=== PATIENT | male | born 1955 | race Caucasian/White ===

== ENCOUNTER → 2023-04-05 10:30 | Outpatient (REF) | payer OTHER, SELFPAY ==
[2023-04-05 11:34] LABS: % Basophils 0.2 % (0-2); % Eosinophils 1.4 % (0-6); % Immature Granulocytes 0.3 % (0-0.5); % Lymphocytes 11.9 % (20.5-51.1); % Monocytes 9.7 % (1.7-9.3); % Neutrophils 76.5 % (42.2-75.2); Absolute Eosinophils 0.1 10^3/uL (0-0.7); Absolute Lymphocytes 1.1 10^3/uL (1.2-3.4); Absolute Monocytes 0.9 10^3/uL (0.1-0.6); Absolute Neutrophils 6.9 10^3/uL (1.4-6.5); Hematocrit 38.9 % (39.0-52.0); Hemoglobin 13.8 g/dL (13.0-18.0); Mean Corp Hgb Conc. 35.5 g/dL (33.0-37.0); Mean Corpuscular Hgb 33.3 pg (27.0-31.0); Mean Platelet Volume 9.6 fL (7.4-10.4); Nucleated Red Blood Cells % 0 % (-); Platelet Count 208 10^3/uL (130-400); Red Blood Cell Count 4.14 10^6/uL (4.70-6.10); Red Cell Dist. Width 12.5 % (11.5-14.5); White Blood Cell Count 9.1 10^3/uL (4.8-10.8)
[2023-04-05 11:52] LABS: ALT (SGPT) 16 U/L (0-50); AST (SGOT) 22 U/L (17-59); Albumin 3.4 g/dl (3.5-5.0); Alkaline Phosphatase 61 U/L (38-126); Blood Urea Nitrogen 20 mg/dl (9-20); Carbon Dioxide 28 mmol/L (22-30); Chloride 100 mmol/L (98-107); Glucose 94 mg/dl (70-99); Potassium 4.8 mmol/L (3.5-5.1); Sodium 133 mmol/L (135-145); Total Protein 5.9 g/dl (6.3-8.2); eGFR > 60.00
== END ==
LOC: OLABP 10:30
PROVIDERS: ATTENDING PHYSICIAN Family Medicine
DX: R33.9 Retention of urine, unspecified (principal); G80.9 Cerebral palsy, unspecified; I10 Essential (primary) hypertension; K59.00 Constipation, unspecified; H91.3 Deaf nonspeaking, not elsewhere classified; F41.9 Anxiety disorder, unspecified; R26.2 Difficulty in walking, not elsewhere classified; Z96.20 Presence of otological and audiological implant, unspecified; M62.49 Contracture of muscle, multiple sites; M62.59 Muscle wasting and atrophy, not elsewhere classified, multiple sites; R31.9 Hematuria, unspecified; N20.0 Calculus of kidney; N40.1 Benign prostatic hyperplasia with lower urinary tract symptoms
CPT/HCPCS: 36415; 80053; 85025

== ENCOUNTER → 2023-04-23 17:07 | Outpatient (REF) | payer OTHER, MEDICARE, SELFPAY ==
[2023-04-23 17:50] LABS: Urine Albumin Negative (Neg - Trace); Urine Bilirubin Negative (Negative); Urine Character Clear (Clear); Urine Color Yellow; Urine Glucose Negative (Negative); Urine Ketone Negative (Negative); Urine Leukocyte Trace (Negative); Urine Nitrite Negative (Negative); Urine Occult Blood Negative (Negative); Urine Specific Gravity 1.015 (<1.030); Urine Urobilinogen Negative (Neg - 1+)
[2023-04-23 17:59] LABS: Urine Hyaline Cast 0-2 /LPF (0-2); Urine Red Blood Cell None Seen /HPF (0-2); Urine Squamous Cell 0-2 /LPF (Few); Urine White Cell 21-25 /HPF (0-5)
== END ==
LOC: OLABP 17:07
PROVIDERS: ATTENDING PHYSICIAN Family Medicine
DX: R33.9 Retention of urine, unspecified (principal)
CPT/HCPCS: 81003; 81015; 87086

== ENCOUNTER → 2023-05-24 12:00 | Outpatient (REF) | payer OTHER, MEDICARE, SELFPAY ==
[2023-05-24 19:29] LABS: Urine Albumin Negative (Neg - Trace); Urine Bilirubin Negative (Negative); Urine Character Clear (Clear); Urine Color Yellow; Urine Glucose Negative (Negative); Urine Ketone Negative (Negative); Urine Leukocyte Trace (Negative); Urine Nitrite Negative (Negative); Urine Occult Blood Negative (Negative); Urine Specific Gravity 1.015 (<1.030); Urine Urobilinogen Negative (Neg - 1+)
[2023-05-24 19:38] LABS: Urine Red Blood Cell 0-2 /HPF (0-2); Urine Squamous Cell 0-2 /LPF (Few); Urine White Cell 26-30 /HPF (0-5)
[2023-05-24 19:39] LABS: Urine Bacteria Many (Negative)
== END ==
LOC: OLABP 12:00
PROVIDERS: ATTENDING PHYSICIAN Family Medicine
DX: R33.9 Retention of urine, unspecified (principal); G35 Multiple sclerosis; I10 Essential (primary) hypertension; K59.00 Constipation, unspecified; H91.3 Deaf nonspeaking, not elsewhere classified; R31.9 Hematuria, unspecified; F41.9 Anxiety disorder, unspecified; N20.0 Calculus of kidney; N40.1 Benign prostatic hyperplasia with lower urinary tract symptoms
CPT/HCPCS: 81003; 81015; 87077; 87086; 87186

== ENCOUNTER → 2023-06-01 11:19 | Outpatient (REF) | payer OTHER, MEDICARE, SELFPAY ==
[2023-06-01 12:08] LABS: Hematocrit 40.7 % (39.0-52.0); Mean Corp Hgb Conc. 34.4 g/dL (33.0-37.0); Mean Corpuscular Hgb 32.4 pg (27.0-31.0); Mean Corpuscular Volume 94.2 fL (80.0-94.0); Mean Platelet Volume 10.2 fL (7.4-10.4); Platelet Count 145 10^3/uL (130-400); Red Blood Cell Count 4.32 10^6/uL (4.70-6.10); Red Cell Dist. Width 11.8 % (11.5-14.5); White Blood Cell Count 4.1 10^3/uL (4.8-10.8)
[2023-06-01 12:27] LABS: Nucleated Red Blood Cells % 0 % (-)
[2023-06-01 12:47] LABS: ALT (SGPT) 11 U/L (0-50); AST (SGOT) 21 U/L (17-59); Albumin 3.6 g/dl (3.5-5.0); Alkaline Phosphatase 56 U/L (38-126); Blood Urea Nitrogen 17 mg/dl (9-20); Calcium 8.6 mg/dl (8.4-10.2); Carbon Dioxide 28 mmol/L (22-30); Chloride 98 mmol/L (98-107); Glucose 85 mg/dl (70-99); Potassium 4.6 mmol/L (3.5-5.1); Sodium 130 mmol/L (135-145); Total Bilirubin 0.4 mg/dl (0.2-1.3); Total Protein 6.3 g/dl (6.3-8.2); eGFR > 60.00
[2023-06-01 13:47] LABS: Absolute Neutrophils -Man Diff 2.3 10^3/uL (1.4-6.5); Band Neutrophils 6 % (0-3); Lymphocytes 25 % (20-51); Monocytes 18 % (2-9); Normal RBC Morphology Yes; Platelets Checked Yes; Segmented Neutrophils 51 % (42-75)
[2023-06-01 13:48] LABS: Total Cells Counted 100
== END ==
LOC: OLABP 11:19
PROVIDERS: ATTENDING PHYSICIAN Family Medicine
DX: R33.9 Retention of urine, unspecified (principal); G35 Multiple sclerosis; I10 Essential (primary) hypertension; K59.00 Constipation, unspecified; R31.9 Hematuria, unspecified; N20.0 Calculus of kidney; N40.1 Benign prostatic hyperplasia with lower urinary tract symptoms; F41.9 Anxiety disorder, unspecified
CPT/HCPCS: 36415; 80053; 85025

== ENCOUNTER → 2023-06-20 11:46 | Outpatient (REF) | payer OTHER, SELFPAY ==
[2023-06-20 12:35] LABS: % Basophils 0.4 % (0-2); % Eosinophils 1.8 % (0-6); % Immature Granulocytes 0.2 % (0-0.5); % Lymphocytes 22.2 % (20.5-51.1); % Monocytes 12.2 % (1.7-9.3); % Neutrophils 63.2 % (42.2-75.2); Absolute Eosinophils 0.1 10^3/uL (0-0.7); Absolute Lymphocytes 1.1 10^3/uL (1.2-3.4); Absolute Monocytes 0.6 10^3/uL (0.1-0.6); Absolute Neutrophils 3.1 10^3/uL (1.4-6.5); Hematocrit 39.8 % (39.0-52.0); Hemoglobin 13.3 g/dL (13.0-18.0); Mean Corp Hgb Conc. 33.4 g/dL (33.0-37.0); Mean Corpuscular Volume 95.9 fL (80.0-94.0); Mean Platelet Volume 9.9 fL (7.4-10.4); Nucleated Red Blood Cells % 0 % (-); Platelet Count 167 10^3/uL (130-400); Red Blood Cell Count 4.15 10^6/uL (4.70-6.10); Red Cell Dist. Width 11.7 % (11.5-14.5); White Blood Cell Count 4.9 10^3/uL (4.8-10.8)
[2023-06-20 13:43] LABS: ALT (SGPT) 17 U/L (0-50); AST (SGOT) 21 U/L (17-59); Albumin 3.5 g/dl (3.5-5.0); Alkaline Phosphatase 44 U/L (38-126); Blood Urea Nitrogen 17 mg/dl (9-20); Carbon Dioxide 30 mmol/L (22-30); Chloride 103 mmol/L (98-107); Glucose 91 mg/dl (70-99); Potassium 4.5 mmol/L (3.5-5.1); Sodium 132 mmol/L (135-145); Total Bilirubin 0.6 mg/dl (0.2-1.3); Total Protein 6.1 g/dl (6.3-8.2); eGFR > 60.00
== END ==
LOC: OLABP 11:46
PROVIDERS: ATTENDING PHYSICIAN Family Medicine
DX: R33.9 Retention of urine, unspecified (principal); G35 Multiple sclerosis; I10 Essential (primary) hypertension; K59.00 Constipation, unspecified; H91.3 Deaf nonspeaking, not elsewhere classified; F41.9 Anxiety disorder, unspecified; R31.9 Hematuria, unspecified; N20.0 Calculus of kidney; N40.1 Benign prostatic hyperplasia with lower urinary tract symptoms
CPT/HCPCS: 36415; 80053; 85025

== ENCOUNTER → 2023-07-21 11:12 | Outpatient (REF) | payer OTHER, SELFPAY ==
[2023-07-21 11:44] LABS: % Basophils 0.4 % (0-2); % Eosinophils 2.5 % (0-6); % Immature Granulocytes 0.2 % (0-0.5); % Lymphocytes 23.5 % (20.5-51.1); % Monocytes 9.6 % (1.7-9.3); % Neutrophils 63.8 % (42.2-75.2); Absolute Eosinophils 0.1 10^3/uL (0-0.7); Absolute Lymphocytes 1.1 10^3/uL (1.2-3.4); Absolute Monocytes 0.4 10^3/uL (0.1-0.6); Absolute Neutrophils 2.9 10^3/uL (1.4-6.5); Hematocrit 41.4 % (39.0-52.0); Hemoglobin 14.1 g/dL (13.0-18.0); Mean Corp Hgb Conc. 34.1 g/dL (33.0-37.0); Mean Corpuscular Volume 94.1 fL (80.0-94.0); Mean Platelet Volume 10.3 fL (7.4-10.4); Nucleated Red Blood Cells % 0 % (-); Platelet Count 152 10^3/uL (130-400); Red Cell Dist. Width 12.2 % (11.5-14.5); White Blood Cell Count 4.5 10^3/uL (4.8-10.8)
[2023-07-21 12:40] LABS: ALT (SGPT) 16 U/L (0-50); AST (SGOT) 20 U/L (17-59); Albumin 3.6 g/dl (3.5-5.0); Alkaline Phosphatase 45 U/L (38-126); Blood Urea Nitrogen 21 mg/dl (9-20); Calcium 9.4 mg/dl (8.4-10.2); Carbon Dioxide 26 mmol/L (22-30); Chloride 102 mmol/L (98-107); Glucose 120 mg/dl (70-99); Potassium 5.1 mmol/L (3.5-5.1); Sodium 135 mmol/L (135-145); Total Bilirubin 0.6 mg/dl (0.2-1.3); Total Protein 6.4 g/dl (6.3-8.2); eGFR > 60.00
== END ==
LOC: OLABP 11:12
PROVIDERS: ATTENDING PHYSICIAN Family Medicine
DX: R33.9 Retention of urine, unspecified (principal); G35 Multiple sclerosis; I10 Essential (primary) hypertension; K59.00 Constipation, unspecified; H91.3 Deaf nonspeaking, not elsewhere classified; F41.9 Anxiety disorder, unspecified; R31.9 Hematuria, unspecified; N20.0 Calculus of kidney; N40.1 Benign prostatic hyperplasia with lower urinary tract symptoms
CPT/HCPCS: 36415; 80053; 85025

== ENCOUNTER → 2023-08-21 11:15 | Outpatient (REF) | payer MEDICARE, SELFPAY ==
[2023-08-21 12:20] LABS: ALT (SGPT) 15 U/L (0-50); AST (SGOT) 20 U/L (17-59); Alkaline Phosphatase 54 U/L (38-126); Blood Urea Nitrogen 19 mg/dl (9-20); Calcium 9.5 mg/dl (8.4-10.2); Carbon Dioxide 26 mmol/L (22-30); Chloride 101 mmol/L (98-107); Glucose 89 mg/dl (70-99); Sodium 136 mmol/L (135-145); Total Bilirubin 0.9 mg/dl (0.2-1.3); Total Protein 6.7 g/dl (6.3-8.2); eGFR > 60.00
[2023-08-21 12:21] LABS: % Basophils 0.4 % (0-2); % Eosinophils 1.6 % (0-6); % Immature Granulocytes 0.2 % (0-0.5); % Lymphocytes 27.2 % (20.5-51.1); % Monocytes 11.7 % (1.7-9.3); % Neutrophils 58.9 % (42.2-75.2); Absolute Eosinophils 0.1 10^3/uL (0-0.7); Absolute Lymphocytes 1.4 10^3/uL (1.2-3.4); Absolute Monocytes 0.6 10^3/uL (0.1-0.6); Absolute Neutrophils 2.9 10^3/uL (1.4-6.5); Hematocrit 38.6 % (39.0-52.0); Hemoglobin 13.5 g/dL (13.0-18.0); Mean Corpuscular Hgb 32.2 pg (27.0-31.0); Mean Corpuscular Volume 92.1 fL (80.0-94.0); Mean Platelet Volume 9.7 fL (7.4-10.4); Nucleated Red Blood Cells % 0 % (-); Platelet Count 196 10^3/uL (130-400); Red Blood Cell Count 4.19 10^6/uL (4.70-6.10); Red Cell Dist. Width 12.7 % (11.5-14.5)
== END ==
LOC: OLABP 11:15
PROVIDERS: ATTENDING PHYSICIAN Family Medicine
DX: R33.9 Retention of urine, unspecified (principal); G35 Multiple sclerosis; I10 Essential (primary) hypertension; K59.00 Constipation, unspecified; H91.3 Deaf nonspeaking, not elsewhere classified; F41.9 Anxiety disorder, unspecified; R31.9 Hematuria, unspecified; N20.0 Calculus of kidney; N40.1 Benign prostatic hyperplasia with lower urinary tract symptoms
CPT/HCPCS: 36415; 80053; 85025

== ENCOUNTER → 2023-08-25 10:52 | Outpatient (REF) | payer MEDICARE, SELFPAY ==
[2023-08-25 11:13] LABS: % Basophils 0.4 % (0-2); % Eosinophils 1.9 % (0-6); % Immature Granulocytes 0.4 % (0-0.5); % Lymphocytes 26.3 % (20.5-51.1); Absolute Eosinophils 0.1 10^3/uL (0-0.7); Absolute Lymphocytes 1.4 10^3/uL (1.2-3.4); Absolute Monocytes 0.6 10^3/uL (0.1-0.6); Absolute Neutrophils 3.2 10^3/uL (1.4-6.5); Hematocrit 38.5 % (39.0-52.0); Hemoglobin 13.5 g/dL (13.0-18.0); Mean Corp Hgb Conc. 35.1 g/dL (33.0-37.0); Mean Corpuscular Hgb 32.4 pg (27.0-31.0); Mean Corpuscular Volume 92.3 fL (80.0-94.0); Mean Platelet Volume 9.6 fL (7.4-10.4); Nucleated Red Blood Cells % 0 % (-); Platelet Count 181 10^3/uL (130-400); Red Blood Cell Count 4.17 10^6/uL (4.70-6.10); White Blood Cell Count 5.3 10^3/uL (4.8-10.8)
[2023-08-25 11:26] LABS: ALT (SGPT) 14 U/L (0-50); AST (SGOT) 17 U/L (17-59); Albumin 3.9 g/dl (3.5-5.0); Alkaline Phosphatase 47 U/L (38-126); Blood Urea Nitrogen 19 mg/dl (9-20); Calcium 9.2 mg/dl (8.4-10.2); Carbon Dioxide 29 mmol/L (22-30); Chloride 102 mmol/L (98-107); Glucose 84 mg/dl (70-99); Potassium 4.4 mmol/L (3.5-5.1); Sodium 135 mmol/L (135-145); Total Bilirubin 0.8 mg/dl (0.2-1.3); Total Protein 6.3 g/dl (6.3-8.2); Uric Acid 3.8 mg/dl (3.5-8.5); eGFR > 60.00
== END ==
LOC: OLABP 10:52
PROVIDERS: ATTENDING PHYSICIAN Family Medicine
DX: R33.9 Retention of urine, unspecified (principal); G35 Multiple sclerosis; I10 Essential (primary) hypertension; K59.00 Constipation, unspecified; H91.3 Deaf nonspeaking, not elsewhere classified; F41.9 Anxiety disorder, unspecified; N20.0 Calculus of kidney; N40.1 Benign prostatic hyperplasia with lower urinary tract symptoms; R31.9 Hematuria, unspecified
CPT/HCPCS: 36415; 80053; 84550; 85025

== ENCOUNTER → 2023-09-25 11:41 | Outpatient (REF) | payer OTHER, SELFPAY ==
[2023-09-25 13:12] LABS: % Basophils 0.4 % (0-2); % Eosinophils 2.2 % (0-6); % Immature Granulocytes 0.2 % (0-0.5); % Lymphocytes 28.9 % (20.5-51.1); % Monocytes 10.1 % (1.7-9.3); % Neutrophils 58.2 % (42.2-75.2); Absolute Eosinophils 0.1 10^3/uL (0-0.7); Absolute Lymphocytes 1.6 10^3/uL (1.2-3.4); Absolute Monocytes 0.6 10^3/uL (0.1-0.6); Absolute Neutrophils 3.2 10^3/uL (1.4-6.5); Hematocrit 38.6 % (39.0-52.0); Hemoglobin 13.2 g/dL (13.0-18.0); Mean Corp Hgb Conc. 34.2 g/dL (33.0-37.0); Mean Corpuscular Hgb 32.4 pg (27.0-31.0); Mean Corpuscular Volume 94.6 fL (80.0-94.0); Nucleated Red Blood Cells % 0 % (-); Platelet Count 173 10^3/uL (130-400); Red Blood Cell Count 4.08 10^6/uL (4.70-6.10); Red Cell Dist. Width 13.2 % (11.5-14.5); White Blood Cell Count 5.5 10^3/uL (4.8-10.8)
[2023-09-25 13:18] LABS: ALT (SGPT) 12 U/L (0-50); AST (SGOT) 16 U/L (17-59); Albumin 3.8 g/dl (3.5-5.0); Alkaline Phosphatase 44 U/L (38-126); Blood Urea Nitrogen 27 mg/dl (9-20); Calcium 9.3 mg/dl (8.4-10.2); Carbon Dioxide 29 mmol/L (22-30); Chloride 105 mmol/L (98-107); Glucose 92 mg/dl (70-99); Potassium 4.6 mmol/L (3.5-5.1); Sodium 138 mmol/L (135-145); Total Bilirubin 0.7 mg/dl (0.2-1.3); Total Protein 6.3 g/dl (6.3-8.2); eGFR > 60.00
== END ==
LOC: OLABP 11:41
PROVIDERS: ATTENDING PHYSICIAN Family Medicine
DX: R33.9 Retention of urine, unspecified (principal); G35 Multiple sclerosis; I10 Essential (primary) hypertension; K59.00 Constipation, unspecified; H91.3 Deaf nonspeaking, not elsewhere classified; F41.9 Anxiety disorder, unspecified; R31.9 Hematuria, unspecified; N20.0 Calculus of kidney; N40.1 Benign prostatic hyperplasia with lower urinary tract symptoms
CPT/HCPCS: 36415; 80053; 85025

== ENCOUNTER 2024-03-05 19:47 | Emergency (ER) | payer OTHER, SELFPAY ==
[2024-03-05 19:52] VITALS: BP 131/79
--- NOTE | 2024-03-05 20:18 | ED.GENMED ---
History of Present Illness
General
Chief Complaint: Swelling
Source: patient
Exam Limitations: none
Time Seen by Provider: 03/05/24 20:00
History of Present Illness
History of Present Illness:
See MDM
Past History
Past History
ED Past Medical History: Other (Cerebral palsy) and Other (Prostatic hypertrophy)
Social History
Tobacco: Non-smoker
Personal: Single
Living: retirement
Employment: Not employed
Phy Exam
Physical Exam
Physical Exam:
See MDM
Scores
Heart Failure Risk
Heart Failure Risk Score: Not Applicable
Course
Orders/Labs/Results
Orders:
Orders
03/05/24 20:11
US Periph Venous LOWER Ext LT Urgent
Comment:
Reason For Exam: left leg swelling
03/05/24 21:46
Apixaban [Eliquis] 10 mg PO ONCE ONE
Vital Signs
Initial and Last Documented VS:
Initial Vital Signs
Temp Pulse Resp BP Pulse Ox
98.7 F 78 16 131/79 95
03/05/24 19:52 03/05/24 19:52 03/05/24 19:52 03/05/24 19:52 03/05/24 19:52
Last Documented Vital Signs
Temp Pulse Resp BP Pulse Ox
98.7 F 78 16 131/79 95
03/05/24 19:52 03/05/24 19:52 03/05/24 19:52 03/05/24 19:52 03/05/24 19:52
MDM/Problems Addressed
Differential Diagnosis Includes:
HPI and MDM Narrative:
68-year-old male presenting for evaluation of left calf swelling. He noticed it about a week ago. Patient has cerebral palsy and is nonambulatory. He denies any pain. Denies chest pain or shortness of breath.
He does have mild erythema to the left calf. Distal extremity neurovascularly intact. Will obtain ultrasound rule out DVT
Patient has overgrown toenails. I discussed follow-up with the podiatry. Patient states podiatry was post to follow-up at his facility but never showed up. Given that his toenails are extremely overgrown unknown at his facility is willing to cut
them, I did trim them with scissors. Patient tolerated it well
Physical exam
General: Well appearing and non-toxic
HEENT: protecting airway
Neck: appears supple
CV: No evidence of cyanosis
Resp: No accessory muscle use
Abd: Non-distended
Extremities: Contractures to distal ankles. Mild left calf erythema and edema. No tenderness. Legs are neurovascularly intact
Neuro: alert
Psych: Normal affect
Skin: Intact
Problems Addressed including Acute and Chronic Conditions affecting care:
1. Left calf swelling and erythema
Acuity: acute
Prognosis: stable
Details: Will obtain ultrasound rule DVT. If negative, will consider antibiotics
2. Overgrown toenails
Acuity: acute on chronic
Prognosis: stable
Details: The toenails were trimmed using scissors. Patient tolerated procedure well.
Updates
Patient found to have DVT. Will start Eliquis
Differential Diagnosis (but not limited to): DVT, cellulitis
Testing considered: Blood work
Drug therapy (if applicable): OTC meds, please see d/c instruction regarding Rx drugs
Amount and/or Complexity of Data Reviewed
Clinical info obtained from: Patient
External data reviewed: Prior records indicate normal renal function
Labs I independently reviewed (but not limited to): N/A
Radiology: Ultrasound report reviewed
Pulse Ox: not hypoxic
EKG independently reviewed: N/A
Wholesale Representative: N/A
Critical Care: N/A
Risk of Complication:
Social Determinants of health: Good social support
Discussed with other providers: N/A
Escalation of Care includes Admit/Obs: After being observed in the Emergency Department, pt stable for discharge.
Occasional wrong word or 'sound a like' substitutions may have occurred due to the inherent limitations of voice recognition software. Read the chart carefully and recognize, using context, where substitutions have occurred.
*Critical Care Note
Total Time (30-74mins, 75-104mins- exclusive of procedures): Not Applicable
ED Attending Note
-
Portions of this chart may have been created with voice recognition software.� Occasional wrong word or��sound alike� substitutions may have occurred due to the inherent limitations of voice recognition software.
Discharge Plan
Departure
Patient Disposition: Home (Routine Discharge)
Date of Disposition: 03/05/24
Time of Disposition: 21:49
Patient with high blood pressure during this ER visit?: No
Discharge Problem:
DVT of lower limb, acute
Instructions: Deep vein thrombosis (blood clot in the leg)
Prescriptions:
New
Eliquis 5 mg tablet
See Rx Instructions .ROUTE .COMPLEX Qty: 74 0RF
Rx Instructions:
10mg BID for first 7 days.
5mg BID moving forward after first 7 days.
No Action
phenazopyridine 200 MG tablet
200 mg PO TID
lorazepam 0.5 MG tablet
0.5 mg PO .0630,1430,2230
tamsulosin 0.4 MG capsule
0.8 mg PO DAILY
paroxetine HCl 20 MG tablet
20 mg PO DAILY
finasteride 5 MG tablet
5 mg PO DAILY
cefdinir [Omnicef] 300 MG capsule
300 mg PO BID Qty: 14 0RF
Activity Restrictions/Additional Instructions:
You were found to have a large blood clot in the left leg. I am placing you on a blood thinner called Eliquis. Please use the provided coupon to get the first 30 days free.
Your doctor will continue to prescribe this moving forward.
Please return for any worsening symptoms.
You may return at any time if you have further concerns.
Please follow up with your doctor at the first available appointment, preferably this week.
Thank you for choosing [facility].
Interventions
Interventions:
*Risk Screen - Suicide Last Done: 03/05/24 19:52
*General Assessment Last Done: 03/05/24 19:52
ED- Fall Risk Assessment Last Done: 03/05/24 20:46
ED- Pulmonary Assessment Last Done: 03/05/24 20:46
ED-Skin Assessment Last Done: 03/05/24 20:46
Discharge Date and Time
Print Language: MOROCCAN
[2024-03-05] MEDS: ELIQUIS 10 MG PO (21:48)
[2024-03-05 21:56] VITALS: BP 139/76
--- NOTE | 2024-03-05 21:56 | EDRN ---
Patient rolled and changed brief and pulled up in bed
--- NOTE | 2024-03-05 22:33 | EDRN ---
Report to nurse at facility
== END 2024-03-05 22:50 | disposition home or self-care (01) ==
LOC: EMR 19:47
PROVIDERS: EMERGENCY PHYSICIAN Student in an Organized Health Care Education/Training Program; FAMILY PHYSICIAN Nurse Practitioner Family
DX: I82.412 Acute embolism and thrombosis of left femoral vein (principal); I82.432 Acute embolism and thrombosis of left popliteal vein; I82.452 Acute embolism and thrombosis of left peroneal vein; I82.442 Acute embolism and thrombosis of left tibial vein
CPT/HCPCS: 99284; 93971

== ENCOUNTER 2024-05-05 15:36 | Emergency (ER) | payer OTHER, SELFPAY ==
[2024-05-05] VITALS (9 sets, daily range): BP systolic 123–145; BP diastolic 72–86
[2024-05-05 16:04] LABS: % Basophils 0.3 % (0-2); % Immature Granulocytes 0.4 % (0-0.5); % Lymphocytes 23.4 % (20.5-51.1); % Monocytes 10.3 % (1.7-9.3); % Neutrophils 63.6 % (42.2-75.2); Absolute Eosinophils 0.2 10^3/uL (0-0.7); Absolute Lymphocytes 1.7 10^3/uL (1.2-3.4); Absolute Monocytes 0.8 10^3/uL (0.1-0.6); Absolute Neutrophils 4.7 10^3/uL (1.4-6.5); Hematocrit 44.8 % (39.0-52.0); Hemoglobin 15.5 g/dL (13.0-18.0); Mean Corp Hgb Conc. 34.6 g/dL (33.0-37.0); Mean Corpuscular Hgb 32.1 pg (27.0-31.0); Mean Corpuscular Volume 92.8 fL (80.0-94.0); Mean Platelet Volume 8.9 fL (7.4-10.4); Nucleated Red Blood Cells % 0 % (-); Platelet Count 164 10^3/uL (130-400); Red Blood Cell Count 4.83 10^6/uL (4.70-6.10); Red Cell Dist. Width 12.2 % (11.5-14.5); White Blood Cell Count 7.4 10^3/uL (4.8-10.8)
[2024-05-05 16:19] LABS: ALT (SGPT) 23 U/L (0-50); AST (SGOT) 24 U/L (17-59); Albumin 4.4 g/dl (3.5-5.0); Alkaline Phosphatase 64 U/L (38-126); Blood Urea Nitrogen 26 mg/dl (9-20); Calcium 9.8 mg/dl (8.4-10.2); Carbon Dioxide 26 mmol/L (22-30); Chloride 104 mmol/L (98-107); Glucose 104 mg/dl (70-99); Potassium 4.2 mmol/L (3.5-5.1); Sodium 136 mmol/L (135-145); Total Bilirubin 0.5 mg/dl (0.2-1.3); Total Protein 7.2 g/dl (6.3-8.2); eGFR > 60.00
--- NOTE | 2024-05-05 16:22 | ED.GENMED ---
History of Present Illness
General
Chief Complaint: Chest Pain
Source: patient
Exam Limitations: none
Time Seen by Provider: 05/05/24 16:22
History of Present Illness
History of Present Illness:
68-year-old male complaining of episodes of heart racing the last 3 days. Actually denies chest pain or chest pressure to me. No shortness of breath. No current symptoms. Last episode was hours ago. No syncope. Patient diagnosed with DVT a few
months ago. Faithful with Eliquis.
Past History
Past History
ED Past Medical History: Other (Cerebral palsy) and Other (Prostatic hypertrophy)
Social History
Tobacco: Non-smoker
Personal: Single
Living: [facility]
Employment: Not employed
Review of Systems
Review of Systems
All Other Systems: Not applicable
Constitutional: Denies fever
Respiratory: Denies trouble breathing
Cardiac: Denies chest pain, diaphoresis or syncope
Phy Exam
Physical Exam
Physical Exam:
GENERAL: Alert and oriented in no apparent distress. Cerebral palsy. Hard of hearing.
EYE: Orbits normal.
NECK: Supple, no significant adenopathy.
ENT: Pharynx without erythema
CARDIAC: Regular rate and rhythm without any obvious murmurs.
LUNGS: Clear breath sounds,normal
ABDOMEN: Soft, without focal tenderness or distention
NEUROLOGICAL: Alert and oriented , grossly non-focal. Cerebral palsy
SKIN: Warm and dry, no rash or lesion, no discoloration, skin intact.
MUSCULOSKELETAL: Mild swelling to the left lower leg. No cord or erythema. Good distal pulses and color
PSYCH: Normal and appropriate interaction.
Scores
Heart Score for Chest Pain Patients
STEMI patient?: Not applicable
Course
Orders/Labs/Results
Orders:
Orders
05/05/24 15:40
Electrocardiogram (*1) Urgent
Reason for Study: Palpitations
EKG- Treatment ONCE
05/05/24 15:54
Complete Blood Count/With Diff Urgent
Comprehensive Metabolic Panel Urgent
Troponin I Urgent
05/05/24 18:41
Electrocardiogram (*1) Stat
Reason for Study: Other
Other Reason for Exam: chest pain
EKG- Treatment ONCE
05/05/24 18:43
Troponin I Urgent
05/05/24 20:33
Lorazepam [Ativan] 0.5 mg PO NOW STA
Abnormal Lab Results
05/05/24
15:54
MCH 32.1 H pg
(27.0-31.0)
Absolute Monos (auto) 0.8 H 10^3/uL
(0.1-0.6)
Monocytes % 10.3 H %
(1.7-9.3)
BUN 26 H mg/dl
(9-20)
Glucose 104 H mg/dl
(70-99)
05/05/24 15:54
05/05/24 15:54
Vital Signs
Initial and Last Documented VS:
Initial Vital Signs
BP
145/86
05/05/24 15:43
Last Documented Vital Signs
Temp Pulse Resp BP Pulse Ox
97.7 F 76 13 133/75 94
05/05/24 15:45 05/05/24 18:45 05/05/24 18:45 05/05/24 18:00 05/05/24 18:45
MDM/Problems Addressed
Differential Diagnosis Includes:
Patient describing episodes of heart racing. No syncope no chest pain no shortness of breath. Currently asymptomatic. Not describing ischemic cardiac issues. We will do 2 troponins and EKGs for completeness however. Highly doubt that he is
throwing pulmonary emboli from his DVT. I would not expect the symptoms to come and go and go away this quickly especially without chest pain or shortness of breath. Will monitor him 4 hours looking for any arrhythmia.
*Pulse Oximetry
Patient hypoxic: no
*EKG
Interpreted by ED Provider?: Yes
Interpretation: normal
Comparison EKG: no changes
Heart Rate: 89
Rate: normal
Rhythm: sinus
[place]: normal axis
Interval: normal interval
QRS Pattern: normal QRS
Ischemia: no ischemia
*Software Applications Architect Interpretation
Rate: normal
Interpretation: normal
Heart Rate: 80
Rhythm: sinus
*Critical Care Note
Total Time (30-74mins, 75-104mins- exclusive of procedures): Not Applicable
Data Reviewed
Review of Other/Old Records Reveals: Labs, Records and Testing
Update Note
Update Note:
Repeat EKG normal sinus rhythm no acute changes. Patient has remained in a normal rhythm. No acute findings. Stable for discharge to follow-up.
ED Attending Note
-
Portions of this chart may have been created with voice recognition software.� Occasional wrong word or��sound alike� substitutions may have occurred due to the inherent limitations of voice recognition software.
Discharge Plan
Departure
Patient Disposition: Home (Routine Discharge)
Date of Disposition: 05/05/24
Time of Disposition: 20:33
Patient with high blood pressure during this ER visit?: Yes
Discharge Problem:
Episodic palpitations
Instructions: BLOOD PRESSURE, Heart Palpitations
Prescriptions:
No Action
phenazopyridine 200 MG tablet
200 mg PO TID
lorazepam 0.5 MG tablet
0.5 mg PO .0630,1430,2230
tamsulosin 0.4 MG capsule
0.8 mg PO DAILY
paroxetine HCl 20 MG tablet
20 mg PO DAILY
finasteride 5 MG tablet
5 mg PO DAILY
cefdinir [Omnicef] 300 MG capsule
300 mg PO BID Qty: 14 0RF
Eliquis 5 mg tablet
See Rx Instructions .ROUTE .COMPLEX Qty: 74 0RF
Rx Instructions:
10mg BID for first 7 days.
5mg BID moving forward after first 7 days.
Referrals:
Lilian New CRNP [Family Provider] - Follow up in 2-3 days
Activity Restrictions/Additional Instructions:
To consider Holter monitor for episodic palpitations
We did give him his dose of lorazepam before he returned. He can have his other nighttime medicines
Interventions
Interventions:
*Risk Screen - Suicide Last Done: 05/05/24 15:46
*General Assessment Last Done: 05/05/24 15:46
*Neglect/Abuse Screening Last Done: 05/05/24 15:46
*ED- Fall Risk Assessment Last Done: 05/05/24 15:46
*ED COVID-19 Vaccine History Last Done: 05/05/24 15:46
ED- Cardiac Assessment Last Done: 05/05/24 15:47
Discharge Date and Time
Print Language: SYRIAN
[2024-05-05 16:31] LABS: Troponin I < 0.012 ng/ml
[2024-05-05 19:17] LABS: Troponin I 0.013 ng/ml
[2024-05-05] MEDS: ATIVAN 0.5 MG PO (20:40)
== END 2024-05-05 23:02 | disposition home or self-care (01) ==
LOC: EMR 15:36
PROVIDERS: EMERGENCY PHYSICIAN Emergency Medicine; FAMILY PHYSICIAN Nurse Practitioner Family
DX: R00.2 Palpitations (principal); G80.8 Other cerebral palsy; N40.0 Benign prostatic hyperplasia without lower urinary tract symptoms; Z86.718 Personal history of other venous thrombosis and embolism
CPT/HCPCS: 99283; 80053; 84484; 85025; 93005

== ENCOUNTER 2024-10-14 11:36 | Emergency (ER) | payer OTHER, SELFPAY ==
[2024-10-14 11:39] VITALS: BP 161/61; BMI 27.7
[2024-10-14 12:00] VITALS: BP 117/74
--- NOTE | 2024-10-14 12:31 | ED.SKININJ ---
HPI-Injury
General
Chief Complaint: Ear Problem
Source: patient
Exam Limitations: none
Time Seen by Provider: 10/14/24 12:18
History of Present Illness-Injury
Initial Injury comments:
69-year-old male [facility] with complaints of left ear discomfort and a sensation of clogged ear. He has a history of cerebral palsy. He states his ear is ringing. He has trouble hearing out of the ear. He states that ears have a
couple years. No fever. No other complaints at this time
Past History
Past History
ED Past Medical History: Other (Cerebral palsy) and Other (Prostatic hypertrophy)
Social History
Tobacco: Non-smoker
Personal: Single
Living: long-term
Employment: Not employed
Phy Exam
Physical Exam
Physical Exam:
General: Well-appearing male no acute distress
HEENT: Left external auditory canal impacted with cerumen. Right canal is clear. Face is symmetric no obvious asymmetry no droop
Skin is warm no rash
Course
Vital Signs
Initial and Last Documented VS:
Initial Vital Signs
Temp Pulse Resp BP Pulse Ox
98.4 F 81 18 161/61 94
10/14/24 11:39 10/14/24 11:39 10/14/24 11:39 10/14/24 11:39 10/14/24 11:39
Last Documented Vital Signs
Temp Pulse Resp BP Pulse Ox
98.4 F 81 18 117/74 94
10/14/24 11:39 10/14/24 11:39 10/14/24 11:39 10/14/24 12:00 10/14/24 11:46
MDM/Problems Addressed
Differential Diagnosis Includes:
Left external auditory canal cerumen impaction. This was irrigated with warm water and large amounts of cerumen were irrigated from the ear. The ear was reinspected. The ear is clear the tympanic membrane is normal. He states he feels better.
Stable for discharge back to facility
*Pulse Oximetry
SaO2: 94
Oxygen Mode of Delivery: Room air
Patient hypoxic: no
*Critical Care Note
Total Time (30-74mins, 75-104mins- exclusive of procedures): Not Applicable
ED Attending Note
-
Portions of this chart may have been created with voice recognition software.� Occasional wrong word or��sound alike� substitutions may have occurred due to the inherent limitations of voice recognition software.
Discharge Plan
Departure
Patient Disposition: Home (Routine Discharge)
Date of Disposition: 10/14/24
Time of Disposition: 12:33
Patient with high blood pressure during this ER visit?: No
Discharge Problem:
Cerumen impaction
Instructions: Ear Wax Impaction (DC)
Prescriptions:
No Action
phenazopyridine 200 MG tablet
200 mg PO TID
lorazepam 0.5 MG tablet
0.5 mg PO .0630,1430,2230
tamsulosin 0.4 MG capsule
0.8 mg PO DAILY
paroxetine HCl 20 MG tablet
20 mg PO DAILY
finasteride 5 MG tablet
5 mg PO DAILY
cefdinir [Omnicef] 300 MG capsule
300 mg PO BID Qty: 14 0RF
Eliquis 5 mg tablet
See Rx Instructions .ROUTE .COMPLEX Qty: 74 0RF
Rx Instructions:
10mg BID for first 7 days.
5mg BID moving forward after first 7 days.
Referrals:
Joseph Hendricks MD [Family Provider, Family Practice]
Activity Restrictions/Additional Instructions:
Return here if needed
Interventions
Interventions:
*Risk Screen - Suicide Last Done: 10/14/24 11:43
*General Assessment Last Done: 10/14/24 11:43
*Neglect/Abuse Screening Last Done: 10/14/24 11:43
*ED- Fall Risk Assessment Last Done: 10/14/24 11:43
*ED COVID-19 Vaccine History Last Done: 10/14/24 11:43
Discharge Date and Time
Print Language: HUNGARIAN
[2024-10-14 13:00] VITALS: BP 128/71
[2024-10-14 14:00] VITALS: BP 125/73
[2024-10-14 14:02] VITALS: BP 121/80
== END 2024-10-14 14:07 | disposition home or self-care (01) ==
LOC: EMR 11:36
PROVIDERS: EMERGENCY PHYSICIAN Emergency Medicine; FAMILY PHYSICIAN Family Medicine
DX: H92.02 Otalgia, left ear (principal); H93.12 Tinnitus, left ear; H61.22 Impacted cerumen, left ear; G80.8 Other cerebral palsy; N40.0 Benign prostatic hyperplasia without lower urinary tract symptoms; Z79.01 Long term (current) use of anticoagulants
CPT/HCPCS: 99283